=== PATIENT | male | born 1980 | race Two or more races ===

== ENCOUNTER 2018-05-16 00:54 | Emergency (ER) | payer OTHER ==
--- NOTE | 2018-05-16 01:04 | EDPHY ---
H & P Stated Complaint: left side pain, tingling-from head to toe Time Seen by Provider: 05/16/18 01:04 HPI/ROS: HPI CHIEF COMPLAINT: Left-sided numbness and tingling. HISTORY OF PRESENT ILLNESS: 37-year-old male woke up around 10 30 this evening with left-sided facial arm and leg numbness and tingling. No weakness. Denies chest pain or shortness of breath. Denies headache. Denies visual disturbance. He states this woke him up from sleep. It is now 130 in the morning which she presents to the emergency room. He denies any chest pain or shortness of breath. Denies focal weakness. Main complaint is tingling to left face left arm and left leg. He has never had this before. Of note patient is predominantly Amharic-speaking. A foreign language interpreter was used for history, review of systems and physical exam. Past Medical History: Denies medical history Past Surgical History: Denies surgical history Social History: He denies drugs alcohol or tobacco. Family History: Noncontributory ROS REVIEW OF SYSTEMS: 10 Systems were reviewed and negative with the exception of the elements mentioned in the history of present illness. Exam Constitutional appears well nontoxic no acute distress, triage nursing summary reviewed, vital signs reviewed, awake/alert. Eyes normal conjunctivae and sclera, EOMI, PERRLA. HENT normal inspection, atraumatic, moist mucus membranes, no epistaxis, neck supple/ no meningismus, no raccoon eyes. Respiratory clear to auscultation bilaterally, normal breath sounds, no respiratory distress, no wheezing. Cardiovascular rate normal, regular rhythm, no murmur, no edema, distal pulses normal. Gastrointestinal soft, non-tender, no rebound, no guarding, normal bowel sounds, no distension, no pulsatile mass. Genitourinary no CVA tenderness. Musculoskeletal no midline vertebral tenderness, full range of motion, no calf swelling, no tenderness of extremities, no meningismus, good pulses, neurovascularly intact. Skin pink, warm, & dry, no rash, skin atraumatic. Neurologic awake, alert and oriented x 3, AAOx3, moves all 4 extremities equally, motor intact, sensory intact, CN II-XII intact, normal cerebellar, normal vision, normal speech. Psychiatric normal mood/affect. Heme/Lymph/Immune no lymphadenopathy. Differential Diagnosis: Includes but is not limited to in a particular order: Neuropathy, peripheral neuropathy, CVA, MS, demyelinating disease, transverse myelitis, anxiety, electrolyte disturbance Medical Decision Making: Plan for this patient will obtain basic blood work, EKG, troponin, chest x-ray, CT scan head without contrast, IV fluid bolus, IV Ativan 0.5 mg for anxiety, and re-evaluate. Re-evaluation: CT head w/o: Negative for acute bleed or ischemia Dr. Tai. EKG interpretation by me on record in [employer] system. Impression time of EKG 1:36 a.m., sinus rhythm rate of 71, LVH present. T-wave abnormality seen in lead 3. On otherwise unremarkable. I spoke with Neurology Dr. Rodriguez, discussed the case in detail. Recommends MRI with and without contrast brain and cervical spine. This will be performed this evening. MRI brain with and without contrast and MRI cervical spine with without contrast negative for cord lesion or abnormality of the brain and cervical spine. Called to me by Dr. Tai. ED x-ray chest one view: Negative for acute cardiopulmonary disease. Negative for focal pneumonia. 0516: Discussed in length with the patient about test results. Cyndi EPPS at bedside. EKG interpretation by me on record in [employer] system. Impression time of EKG 5:35 a.m., sinus rhythm rate of 66, without any signs of acute ischemia no ST elevation or ST depression or T-wave abnormalities except for any 3. Nonischemic EKG Repeat troponin 0.00. Patient has not had any chest pain or shortness of breath. Patient presented with left-sided facial arm and leg numbness and tingling. MRIs are unremarkable for acute stroke. Or demyelinating injury. Recommend patient follows up with his primary care doctor or Neurology outpatient basis. He understands. This been discussed in detail with him with Cyndi EPPS. He understands, and all questions were answered. Source: Patient - Medical/Surgical History Hx Asthma: No Hx Chronic Respiratory Disease: No Hx Diabetes: No Hx Cardiac Disease: No Hx Renal Disease: No Hx Cirrhosis: No Hx Alcoholism: No Hx HIV/AIDS: No Hx Splenectomy or Spleen Trauma: No - Social History Smoking Status: Never smoked Constitutional: Initial Vital Signs Temperature (C) 37.1 C 05/16/18 00:57 Heart Rate 81 05/16/18 00:57 Respiratory Rate 20 10/16/18 00:57 Blood Pressure 131/90 H 05/16/18 00:57 O2 Sat (%) 96 05/16/18 00:57 O2 Delivery Mode Room Air Allergies/Adverse Reactions: No Known Allergies Allergy (Unverified 05/16/18 00:57) Home Medications: Medication Instructions Recorded Tobramycin 0.3% [Tobrex 0.3% opht 1 drops LEFTEYE Q3H 5 Days bottle 12/02/11 drops (*)] oxyCODONE/APAP 5/325 [Percocet] 1 - 2 tab PO Q4-6PRN PRN #17 tab 12/02/11 Medical Decision Making - Data Points Laboratory Results: Laboratory Results 05/16/18 01:47 05/16/18 01:47 05/16/18 05/16/18 05/16/18 05:29 01:47 01:47 WBC RBC Hgb Hct MCV MCH MCHC RDW Plt Count MPV Neut % (Auto) Lymph % (Auto) [place] % (Auto) Eos % (Auto) Baso % (Auto) Nucleat RBC Rel Count Absolute Neuts (auto) Absolute Lymphs (auto) Absolute Monos (auto) Absolute Eos (auto) Absolute Basos (auto) Absolute Nucleated RBC Immature Gran % Immature Gran # Sodium 139 mEq/L mEq/L (135-145) Potassium 3.7 mEq/L mEq/L (3.3-5.0) Chloride 105 mEq/L mEq/L (97-110) Carbon Dioxide 22 mEq/l mEq/l (22-31) Anion Gap 12 mEq/L mEq/L (6-14) BUN 18 mg/dL mg/dL (7-23) Creatinine 0.7 mg/dL mg/dL (0.7-1.3) Estimated GFR > 60 Glucose 108 mg/dL H mg/dL (70-100) Calcium 9.3 mg/dL mg/dL (8.5-10.4) Magnesium 2.0 mg/dL mg/dL (1.6-2.3) Total Bilirubin 0.5 mg/dL mg/dL (0.1-1.4) Conjugated Bilirubin 0.2 mg/dL mg/dL (0.0-0.5) Unconjugated Bilirubin 0.3 mg/dL mg/dL (0.0-1.1) AST 21 IU/L IU/L (17-59) ALT 42 IU/L IU/L (21-72) Alkaline Phosphatase 87 IU/L IU/L (38-126) POC Troponin I 0.00 ng/mL ng/mL 0.00 ng/mL ng/mL (0.00-0.08) (0.00-0.08) NT-Pro-B Natriuret Pep 15 pg/mL pg/mL (0-125) Total Protein 7.4 g/dL g/dL (6.3-8.2) Albumin 4.1 g/dL g/dL (3.5-5.0) 05/16/18 01:47 WBC 6.08 10^3/uL 10^3/uL (3.80-9.50) RBC 5.62 10^6/uL 10^6/uL (4.40-6.38) Hgb 16.0 g/dL g/dL (13.7-17.5) Hct 47.4 % % (40.0-51.0) MCV 84.3 fL fL (81.5-99.8) MCH 28.5 pg pg (27.9-34.1) MCHC 33.8 g/dL g/dL (32.4-36.7) RDW 13.2 % % (11.5-15.2) Plt Count 245 10^3/uL 10^3/uL (150-400) MPV 9.9 fL fL (8.7-11.7) Neut % (Auto) 53.7 % % (39.3-74.2) Lymph % (Auto) 33.1 % % (15.0-45.0) [place] % (Auto) 9.0 % % (4.5-13.0) Eos % (Auto) 3.0 % % (0.6-7.6) Baso % (Auto) 0.7 % % (0.3-1.7) Nucleat RBC Rel Count 0.0 % % (0.0-0.2) Absolute Neuts (auto) 3.27 10^3/uL 10^3/uL (1.70-6.50) Absolute Lymphs (auto) 2.01 10^3/uL 10^3/uL (1.00-3.00) Absolute Monos (auto) 0.55 10^3/uL 10^3/uL (0.30-0.80) Absolute Eos (auto) 0.18 10^3/uL 10^3/uL (0.03-0.40) Absolute Basos (auto) 0.04 10^3/uL 10^3/uL (0.02-0.10) Absolute Nucleated RBC 0.00 10^3/uL 10^3/uL (0-0.01) Immature Gran % 0.5 % % (0.0-1.1) Immature Gran # 0.03 10^3/uL 10^3/uL (0.00-0.10) Sodium Potassium Chloride Carbon Dioxide Anion Gap BUN Creatinine Estimated GFR Glucose Calcium Magnesium Total Bilirubin Conjugated Bilirubin Unconjugated Bilirubin AST ALT Alkaline Phosphatase POC Troponin I NT-Pro-B Natriuret Pep Total Protein Albumin Medications Given: Discontinued Medications Sodium Chloride (Ns) 1,000 mls @ 0 mls/hr IV EDNOW ONE; Wide Open PRN Reason: Protocol Stop: 05/16/18 01:24 Last Admin: 05/16/18 01:42 Dose: 1,000 mls Lorazepam (Ativan) 0.5 mg PO ONCE ONE Stop: 05/16/18 01:24 Last Admin: 05/16/18 01:45 Dose: Not Given Lorazepam (Ativan Injection) 0.5 mg IVP EDNOW ONE Stop: 05/16/18 01:28 Last Admin: 05/16/18 01:43 Dose: 0.5 mg Point of Care Test Results: Chemistry 05/16/18 05/16/18 05:29 01:47 POC Troponin I 0.00 ng/mL ng/mL 0.00 ng/mL ng/mL (0.00-0.08) (0.00-0.08) Departure - Departure Disposition: Home, Routine, Self-Care Clinical Impression: Paresthesia Condition: Good Instructions: Paresthesia (ED) Referrals: [facility] [Other] - As per Instructions Jared Deutsch DO [Doctor of Osteopathy] - As per Instructions
[2018-05-16] MEDS ORDERED: NS 1,000 ML IV ONE (01:23)
[2018-05-16] MEDS ORDERED: LORazepam 1 MG TAB PO ONE (01:23)
[2018-05-16] MEDS ORDERED: LORazepam 2 MG/ML INJ IVP ONE (01:27)
[2018-05-16] MEDS ORDERED: LORazepam 2 MG/ML INJ ONE (01:28)
[2018-05-16 01:51] LABS: PLATELET COUNT 245 10^3/uL (150-400)
[2018-05-16] MEDS ORDERED: GADOBUTROL 10 ML VIAL IVP ONE (03:28)
[2018-05-16 05:44] VITALS: BP 124/87
--- NOTE | 2018-05-18 23:58 | CPEKG ---
Test Reason : OPEN Blood Pressure : / mmHG Vent. Rate : 071 BPM Atrial Rate : 071 BPM P-R Int : 150 ms QRS Dur : 102 ms QT Int : 394 ms P-R-T Axes : -04 -01 000 degrees QTc Int : 429 ms Sinus rhythm Left ventricular hypertrophy Borderline T abnormalities, inferior leads Confirmed by Sunil Levy ([id number]) on 05/18/2018 11:57:49 PM Referred By: Confirmed By:Sunil Levy
--- NOTE | 2018-05-18 23:58 | CPEKG ---
Test Reason : OPEN Blood Pressure : / mmHG Vent. Rate : 066 BPM Atrial Rate : 068 BPM P-R Int : 148 ms QRS Dur : 094 ms QT Int : 418 ms P-R-T Axes : 010 009 005 degrees QTc Int : 438 ms Sinus rhythm Low voltage, precordial leads Confirmed by Sunil Levy ([id number]) on 05/18/2018 11:57:51 PM Referred By: Confirmed By:Sunil Levy
== END 2018-05-16 06:06 | disposition home or self-care (01) ==
DX: R20.2 Paresthesia of skin (principal); I51.7 Cardiomegaly; E86.9 Volume depletion, unspecified
CPT/HCPCS: 84484-PO; 96374; A9585; J2060